=== PATIENT | female | born 2000 | race Caucasian/White ===

== ENCOUNTER 2019-05-03 10:29 | Emergency (ER) | payer OTHER, SELFPAY ==
--- NOTE | ~2019-05-03 | XR_ITS ---
XR hand RT min 3V 05/03/2019 11:51 INDICATION: Right hand pain PROCEDURE: 3 views right hand COMPARISON: 05/15/2010 FINDINGS: Fracture, dislocation or subluxation is not identified. The soft tissues appear within norm al limits. No foreign bodies are identified. IMPRESSION: 1: NO ACUTE BONE OR JOINT ABNORMALITY IDENTIFIED. Reviewed, dictated and finalized at location A.
[2019-05-03 10:34] VITALS: BP 127/79; PULSE 90; RESP 16; TEMP 36.8; O2SAT 100
--- NOTE | 2019-05-03 11:02 | ED.UPPEXIN ---
HPI - Extremity Injury (Upper) General Chief Complaint: Extremity Injury, Upper Stated Complaint: right pinky injury Time Seen by Provider: 05/03/19 10:36 Source: patient Mode of arrival: ambulatory Limitations: no limitations History of Present Illness HPI narrative: This is a 18 year old female that presents to the ER for right 5th finger injury last night. Reports she was cleaning out booths at work. Reports she dropped the cushion with wood frame on her right hand. Reports since she has had pain, especially in the 5th finger. Pain radiates into her hand and is worse with movement. Denies decreased ROM or numbness. Related Data Home Medications Medication Instructions Recorded Confirmed estradiol valerate-dienogest 3 1 tablet PO DAILY 12/29/18 mg/2 mg-2 mg/2 mg-3 mg/1 mg tablet ferrous sulfate 324 mg (65 mg 324 mg PO DAILY 12/29/18 iron) tablet,delayed release Allergies Allergy/AdvReac Type Severity Reaction Status Date / Time No Known Allergies Allergy Verified 05/03/19 10:37 Review of Systems Review of Systems: Narrative: CONSTITUTIONAL: Denies fever MUSCULOSKELETAL: Reports joint pain, and myalgia. NEUROLOGIC: Denies numbness All systems reviewed & are unremarkable except as noted in HPI and below PMFSH Family History Family History (System 01/03/19 @ 09:40 by María Álvarez) Father Hypertension Family history of lymphoma Family history of hypercholesterolemia Family history of heart disease in male family member before age 55, Onset Age: 37 Grandparent Hypertension Family history of cardiovascular disease Other Asthma Social History Social History (Updated 04/08/19 @ 11:26 by Norma Padilla) Smoking status: Never smoker Second hand tobacco smoke exposure: No Smoking end date: 02/23/15 Alcohol intake: never Substance use: never Substance use type: does not use Additional living arrangements comments: with boyfriend and mom Gender identity (if verbalized by the patient): Female Exam Narrative: Exam Narrative: GENERAL: Well-appearing, well-nourished, and in no acute distress. HEAD: Normocephalic, atraumatic. EYES: EOMI. EXTREMITIES: Normal range of motion. No edema or obvious deformity. Mild bruising to the right 5th finger distal phalanx. Normal radial pulses. Normal sensation SKIN: Warm, dry, no rash. NEURO: No focal deficits. Alert and oriented x3. PSYCH: Normal mood and affect Course Vital Signs Vital signs: Vital Signs Temperature 98.3 F 05/03/19 10:34 Pulse Rate 90 05/03/19 10:34 Respiratory Rate 16 05/03/19 10:34 Blood Pressure 127/79 05/03/19 10:34 Pulse Oximetry 100 05/03/19 10:34 Temperature 98.3 F 05/03/19 10:34 Pulse Rate 90 05/03/19 10:34 Respiratory Rate 16 05/03/19 10:34 Blood Pressure 127/79 05/03/19 10:34 Pulse Oximetry 100 05/03/19 10:34 MDM - Extremity Injury (Upper) MDM Narrative Medical decision making narrative: Patient presents to the ER for injury to right 5th finger injury yesterday. Right hand x-rays without acute changes. Patient was placed in a finger splint for protection and comfort. She was instructed to ice, elevate and take anti-inflammatories as needed for pain. She is to follow-up with primary care doctor. She is given warnings to return to the ER Imaging Data Radiologist's impression: ITS Impressions Hand X-Ray 05/03/19 11:54 IMPRESSION: 1: NO ACUTE BONE OR JOINT ABNORMALITY IDENTIFIED. Critical Care Time Critical Care Time Critical Care Time: No Discharge Plan Discharge Clinical Impression: Contusion of right little finger Qualifiers: Encounter type: initial encounter Damage to nail status: without damage Qualified Code(s): S60.051A - Contusion of right little finger without damage to nail, initial encounter Patient Disposition: Home, Self-Care Condition: Stable Instructions: Contusion in Adults (ED) Additional Instructi
[2019-05-03 13:01] VITALS: BP 112/78; PULSE 68; RESP 16; O2SAT 100
== END 2019-05-03 13:02 | disposition home or self-care (01) ==
PROVIDERS: Emergency Provider Emergency Medicine; PCP Family Medicine
DX: S60.051A Contusion of right little finger without damage to nail, initial encounter (principal); W20.8XXA Other cause of strike by thrown, projected or falling object, initial encounter
CPT/HCPCS: 29130; 73130; 99283

== ENCOUNTER 2019-08-21 13:00 | Emergency (ER) | payer OTHER, SELFPAY ==
--- NOTE | ~2019-08-21 | XR_ITS ---
EXAMINATION: XR ankle RT min 3V EXAM DATE: 08/21/2019 13:48 INDICATION: Initial encounter following injury, with pain of the right ankle. TECHNIQUE: Right ankle frontal, lateral and oblique projections obtained and reviewed. There is no p rior study for comparison. FINDINGS: The right ankle mortise appears intact. There are no acute fractures or dislocations iden tified. There is no subcutaneous gas. The soft tissue is unremarkable. There are no radiopaque fo reign bodies. IMPRESSION: 1. Right ankle exam without acute osseous findings. Reviewed, dictated and finalized at location A.
--- NOTE | ~2019-08-21 | XR_ITS ---
EXAMINATION: XR knee RT 3V EXAM DATE: 08/21/2019 13:48 INDICATION: Initial encounter following injury, with pain of the right knee. TECHNIQUE: Three projections of the right knee. There is no prior study for comparison. FINDINGS: No evidence osteochondral defect or joint body in the right knee joint. No joint effusio n. There are no acute fractures or dislocations identified. There is no subcutaneous gas. The soft tissue is unremarkable. There are no radiopaque foreign bodies. IMPRESSION: 1. XR knee RT 3V exam without acute osseous findings. Reviewed, dictated and finalized at location A.
[2019-08-21 13:03] VITALS: BP 136/66; PULSE 78; RESP 18; TEMP 36.9; O2SAT 100
--- NOTE | 2019-08-21 13:17 | ED.GENADULT ---
HPI - General Adult General Chief complaint: Fall <Gilmar Reed PA-C Last Filed: 08/21/19 14:14> Stated complaint: fall at work <CB Garces Last Filed: 08/21/19 14:14> Time Seen by Provider: 08/21/19 13:08 <CB Garces Last Filed: 08/21/19 14:14> Source: patient <CB Garces Last Filed: 08/21/19 14:14> Mode of arrival: ambulatory <Gilmar Reed PA-C Last Filed: 08/21/19 14:14> Limitations: no limitations <Gilmar Reed PA-C Last Filed: 08/21/19 14:14> History of Present Illness HPI narrative: Patient is a 19-year-old female who presents to emergency department for evaluation of right knee and ankle pain that began yesterday after miss stepping twisting the ankle and injuring it patient notes bruising and swelling to the knee joint denies other injuries or complaints presents per private vehicle in no distress. Has not taken anything for symptom <Gilmar Reed PA-C Last Filed: 08/21/19 14:14> Related Data Home medications: Home Medications Medication Instructions Recorded Confirmed No Home Medications 08/21/19 08/21/19 <Gilmar Reed PA-C Last Filed: 08/21/19 14:14> Allergies/adverse reactions: Allergies Allergy/AdvReac Type Severity Reaction Status Date / Time No Known Allergies Allergy Verified 08/21/19 13:08 <Gilmar Reed PA-C Last Filed: 08/21/19 14:14> Review of Systems Review of Systems: All systems reviewed & are unremarkable except as noted in HPI and below <Gilmar Reed PA-C Last Filed: 08/21/19 14:14> [facility] Family History Family History: Family History (System 01/03/19 @ 09:40 by María Álvarez) Father Hypertension Family history of lymphoma Family history of hypercholesterolemia Family history of heart disease in male family member before age 55, Onset Age: 37 Grandparent Hypertension Family history of cardiovascular disease Other Asthma <CB Garces Last Filed: 08/21/19 14:14> Social History Social History: Social History Smoking status: Never smoker Second hand tobacco smoke exposure: No Smoking end date: 02/23/15 Alcohol intake: never Substance use: never Substance use type: does not use Additional living arrangements comments: with boyfriend and mom Gender identity (if verbalized by the patient): Female <Gilmar Reed PA-C - Last Filed: 08/21/19 14:14> Exam Narrative: Exam Narrative: GENERAL: Well-appearing, well-nourished, and in no acute distress. HEAD: Normocephalic, atraumatic. EYES: PERRLA and EOMI. ENT: Nares clear, no rhinorrhea or epistaxis. Mucous membranes moist. EXTREMITIES: Normal range of motion. No edema. Bruising and tenderness of the anterior right knee and lateral aspect of the right ankle no deformity of the ankle noted SKIN: Warm, dry, no rash. NEURO: No focal deficits. Alert and oriented x3. Neurovascularly intact. Cranial nerves II through XII grossly intact. PSYCH: Normal mood and affect. <Gilmar Reed PA-C - Last Filed: 08/21/19 14:14> Course Vital Signs Vital signs: Vital Signs Temperature 36.9 C 08/21/19 13:03 Pulse Rate 78 08/21/19 13:03 Respiratory Rate 18 08/21/19 13:03 Blood Pressure 136/66 08/21/19 13:03 Pulse Oximetry 100 08/21/19 13:03 Temperature 36.9 C 08/21/19 13:03 Pulse Rate 62 08/21/19 14:41 Respiratory Rate 16 08/21/19 14:41 Blood Pressure 108/66 08/21/19 14:41 Pulse Oximetry 99 08/21/19 14:41 <Gilmar Reed PA-C - Last Filed: 08/21/19 14:14> Vital Signs Temperature 36.9 C 08/21/19 13:03 Pulse Rate 78 08/21/19 13:03 Respiratory Rate 18 08/21/19 13:03 Blood Pressure 136/66 08/21/19 13:03 Pulse Oximetry 100 08/21/19 13:03 Temperature 36.9 C 08/21/19 13:03 Pulse Rate 62 08/21/19 14:41
[2019-08-21 14:41] VITALS: BP 108/66; PULSE 62; RESP 16; O2SAT 99
== END 2019-08-21 14:43 | disposition home or self-care (01) ==
PROVIDERS: Emergency Provider Emergency Medicine; PCP Family Medicine
DX: S80.01XA Contusion of right knee, initial encounter (principal); S93.401A Sprain of unspecified ligament of right ankle, initial encounter; X50.9XXA Other and unspecified overexertion or strenuous movements or postures, initial encounter
CPT/HCPCS: 73562; 73610; 99284

== ENCOUNTER 2020-01-20 06:53 | Outpatient (NON) | payer OTHER, SELFPAY ==
[2020-01-21 13:43] LABS: SARS-CoV-2 RNA PCR Positive
== END 2020-01-20 06:54 ==
LOC: ANHCOVIDDT 07:20
PROVIDERS: PCP Family Medicine; Visit Provider Physician Assistant
DX: U07.1 COVID-19 (principal)
CPT/HCPCS: 87635; C9803; U0003

== ENCOUNTER 2020-07-06 08:09 | Outpatient (CLI) | payer OTHER, SELFPAY ==
[2020-07-06 08:19] LABS: Basophils Absolute Auto 0.1 K/mm3 (0.0-0.1); Basophils Percent Auto 0.7 % (0.2-1.2); Eosinophils Absolute Auto 0.2 K/mm3 (0-0.3); Eosinophils Percent Auto 2.9 % (0-4.4); Hematocrit 42.4 % (37.0-47.0); Hemoglobin 14.1 g/dL (12.0-15.0); Immature Granulocyte Absolute 0.02 K/mm3 (0.00-0.031); Immature Granulocyte Percent A 0.3 % (0-0.5); Lymphocytes Absolute Auto 2.05 K/mm3 (0.9-3.2); Lymphocytes Percent Auto 29.7 % (18.3-44.2); Mean Corpuscular HGB Conc 33.3 g/dl (32-36); Mean Corpuscular Hemoglobin 30.2 pg (26-34); Mean Corpuscular Volume 90.8 fl (80-100); Monocytes Absolute Auto 0.5 K/mm3 (0.1-0.6); Monocytes Percent Auto 7.2 % (2.6-8.5); Neutrophils Absolute Auto 4.1 K/mm3 (1.3-6.7); Neutrophils Percent Auto 59.2 % (45.5-73.1); Platelet Count Result 282 k/mm3 (150-375); Red Blood Count 4.67 M/mm3 (4.2-5.4); Red Cell Distribution Width 12.3 % (11.5-14.5); White Blood Count 6.9 K/mm3 (4.5-10.0)
[2020-07-06 08:28] LABS: Alanine Aminotransferase 14 U/L (4-35); Albumin Level 4.5 g/dL (3.5-5.1); Alkaline Phosphatase 44 U/L (38-126); Anion Gap 4 mmol/L (8-16); Aspartate Amino Transferase 27 U/L (14-36); Bilirubin,Total 0.6 mg/dL (0.2-1.3); Blood Urea Nitrogen 10 mg/dL (7-17); Calcium 9.8 mg/dL (8.4-10.2); Carbon Dioxide 30 mmol/L (22-30); Chloride 103 mmol/L (98-107); Estimated Glomerular Filt Rate > 60; Glucose 98 mg/dL (65-105); Potassium 3.7 mmol/L (3.4-5.0); Sodium 137 mmol/L (137-145)
== END 2020-07-06 08:10 | disposition home or self-care (01) ==
LOC: ANHLAB 08:09
PROVIDERS: PCP Family Medicine; Visit Provider Family Medicine
DX: D64.9 Anemia, unspecified (principal); I10 Essential (primary) hypertension; E03.9 Hypothyroidism, unspecified
CPT/HCPCS: 36415; 80053; 82607; 84443; 85025

== ENCOUNTER 2021-01-15 17:23 | Emergency (ER) | payer OTHER, SELFPAY ==
--- NOTE | ~2021-01-15 | XR_ITS ---
XR knee LT min 4V 01/15/2021 17:52 INDICATION: Left knee pain PROCEDURE: 4 views left knee COMPARISON: No prior studies for comparison. FINDINGS: Fracture, dislocation or subluxation is not identified. No significant joint effusion. The soft tissues appear within normal limits. No foreign bodies are identified. IMPRESSION: 1: NO ACUTE BONE OR JOINT ABNORMALITY IDENTIFIED. Reviewed, dictated and finalized at location A. ER/WAITRESS HEAD
[2021-01-15 17:30] VITALS: BP 127/69; PULSE 102; RESP 17; TEMP 36.4; O2SAT 100
--- NOTE | 2021-01-15 20:42 | ED.GENADULT ---
HPI - General Adult General Chief complaint: Extremity Injury, Lower Stated complaint: Left Knee Injury Time Seen by Provider: 01/15/21 17:55 Source: patient Mode of arrival: ambulatory Limitations: no limitations History of Present Illness HPI narrative: Patient presents with chief complaint of pain to the left knee that began on Thursday after playing soccer. Patient reports that her left leg went medially right lower leg went out laterally. Patient reports that she also noticed some bruises on her shins but denies pain to those areas. Patient reports she has some discomfort with weightbearing. She reports she has decreased range of motion due to discomfort. Patient denies any other injuries or concerns. Related Data Allergies Allergy/AdvReac Type Severity Reaction Status Date / Time No Known Allergies Allergy Verified 12/17/20 07:48 Review of Systems Review of Systems: CONSTITUTIONAL: Denies fever, chills, or sweats. EYES: Denies visual changes, redness, or discharge. ENT: Denies rhinorrhea, congestion, sore throat, or otalgia. CARDIOVASCULAR: Denies chest pain, palpitations, or edema. RESPIRATORY: Denies cough or dyspnea. GASTROINTESTINAL: Denies abdominal pain, nausea, vomiting, or diarrhea. GENITOURINARY: Denies dysuria or hematuria. SKIN: Denies rash or itching. MUSCULOSKELETAL: Reports left knee pain denies back pain, joint pain, or myalgia. NEUROLOGIC: Denies headache, numbness, dizziness, or weakness. PSYCHIATRIC: Denies anxiety or depression. [facility] Family History Family History Father Hypertension Family history of lymphoma Family history of hypercholesterolemia Family history of heart disease in male family member before age 55, Onset Age: 37 Grandparent Hypertension Family history of cardiovascular disease Other Asthma Social History Social History (Updated 12/17/20 @ 07:49 by Norma Padilla) Social History: Single Smoking status: Smoker, status unknown (Pt vapes) Tobacco type: cigarettes and e-cigarettes/vaping Second hand tobacco smoke exposure: No Smoking end date: 02/23/15 Additional smoking assessment comments: Pt still vapes Alcohol intake: current Alcohol use details: Occasionally Substance use: current Substance use type: marijuana Other substance usage details: Pt smokes on occasion, when she can't sleep. Additional living arrangements comments: with boyfriend and mom. Additional occupation/education comments: Pt works 2 jobs. Gender identity (if verbalized by the patient): Female Sexual Orientation (if Verbalized by the Patient): Straight or Heterosexual Exam Narrative: GENERAL: Well-appearing, well-nourished, and in no acute distress. HEAD: Normocephalic, atraumatic. EYES: PERRLA and EOMI. CHEST: No respiratory distress. No tachypnea EXTREMITIES: Bruising diffusely to bilateral lower legs. There is a bruise to the anterior aspect of the left knee. Patient has limitations to extending and flexing due to discomfort. Unable to get full anterior and posterior drawer test and Tatiana's test due to discomfort from patient limiting exam. Spasming to posterior quad. SKIN: Warm, dry, no rash. NEURO: No focal deficits. Alert and oriented x3. PSYCH: Normal mood and affect. Course Vital Signs Vital signs: Vital Signs Temperature 97.6 F 01/15/21 17:30 Pulse Rate 102 H 01/15/21 17:30 Respiratory Rate 17 01/15/21 17:30 Blood Pressure 127/69 01/15/21 17:30 Pulse Oximetry 100 01/15/21 17:30 Temperature 97.6 F 01/15/21 17:30 Pulse Rate 102 H 01/15/21 17:30 Respiratory Rate 17 01/15/21 17:30 Blood Pressure 127/69 01/15/21 17:30 Pulse Oximetry 100 01/15/21 17:30 Medical Decision Making MDM Narrative Medical decision making narrative: Patient placed in Larry wrap for support. Patient reports he already has crutches at home to avoid weightbearing until he ca
== END 2021-01-15 19:10 | disposition home or self-care (01) ==
PROVIDERS: Emergency Provider Emergency Medicine; PCP Family Medicine
DX: S86.912A Strain of unspecified muscle(s) and tendon(s) at lower leg level, left leg, initial encounter (principal); X50.0XXA Overexertion from strenuous movement or load, initial encounter
CPT/HCPCS: 73564; 99283

== ENCOUNTER 2021-02-03 07:13 | Outpatient (CLI) | payer OTHER, SELFPAY ==
--- NOTE | ~2021-02-03 | MR_ITS ---
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 Sequences included coronal PD-weighted FSE, coronal PD-weighted FS FSE, sagittal T2-weighted FSE , sagittal PD-weighted FS FSE, axial T1-weighted FSE and axial PD weighted fat saturated FSE. COMPARISON: Radiographs dated 01/15/2021 FINDINGS: Medial compartment: Medial meniscus is normal. Articular cartilage is normal. Lateral compartment: Lateral meniscus is normal. Articular cartilage is normal. Patellofemoral compartment: Articular cartilage is normal. Ligaments and tendons: Anterior and posterior cruciate ligaments are normal. The medial collateral ligament and fibular rafi ateral ligament complex are normal. The extensor mechanism is normal. The visualized medial and later al hamstring tendons as well as the iliotibial band are normal. Fluid: Physiologic amount of fluid in the joint space. No loose osteochondral bodies identified. Osseous/other: There is prominent marrow signal at the proximal head of the fibula surrounding low signal intensity curvilinear fracture line underlying the articular surface at the proximal tibiofibular articulation. The orientation of the fracture line would favor an impaction fracture of the abdomen and avulsion f racture. Further supporting impacted etiology is the coarse benign marrow edema without evident fract ure line in the posterolateral aspect of the proximal tibia juxtaposed across the proximal tibiofibul ar articulation. Bone marrow signal is otherwise normal. No other fractures or pathologic marrow repl acing process. IMPRESSION: 1. Likely impaction injury at the proximal tibiofibular articulation with bone contusion at the tibia l side of the joint space and nondisplaced subarticular impaction fracture line at the head of the fi bula. 2. Normal menisci, cartilage and stabilizing ligaments of the knee. Reviewed, dictated and finalized at location A. LOPE MAKER IMPRESSION: 1. Likely impaction injury at the proximal tibiofibular articulation with bone contusion at the tibial side of the joint space and nondisplaced subarticular i mpaction fracture line at the head of the fibula. 2. Normal menisci, cartilage and stabilizing ligaments of the knee.
== END 2021-02-03 07:14 | disposition home or self-care (01) ==
PROVIDERS: PCP Family Medicine; Visit Provider Family Medicine
DX: S80.12XS Contusion of left lower leg, sequela (principal); M23.8X2 Other internal derangements of left knee
CPT/HCPCS: 73721

== ENCOUNTER 2021-04-22 20:33 | Emergency (ER) | payer OTHER, BC, SELFPAY ==
--- NOTE | ~2021-04-22 | CT_ITS ---
EXAMINATION: CT brain wo con DATE: 04/22/2021 23:03 INDICATION: Injury playing soccer yesterday. Patient's head was butted. TECHNIQUE: Computed tomography (CT) of the head was performed without intravenous contrast. The mA wa s adjusted according to patient size. Iterative reconstruction technique was employed. Exam dose: 52 9.67 mGy-cm total exam DLP. COMPARISON: None FINDINGS: No intracranial mass lesion or hemorrhage or cerebrovascular accident. No midline shift or mass effect. Normal ventricular size. Normal cerda-white matter differentiation. No subdural or epidur al hematoma. The orbital contents are unremarkable. No fracture or bone destruction of the cranial vault. Included paranasal sinuses and mastoid air cells are normally developed and aerated. And IMPRESSION: Negative Reviewed, dictated and finalized at Location A. Reviewed, dictated and finalized at location A. NDER FILLER IMPRESSION: Negative
--- NOTE | ~2021-04-22 | CT_ITS ---
EXAMINATION: CT facial bones wo con DATE: 04/22/2021 23:03 INDICATION: Injury playing soccer yesterday. Patient was head butted. Head and facial injuries. TECHNIQUE: Computed tomography (CT) of the facial bones and maxillofacial region was performed withou t intravenous contrast. Automated exposure control and iterative reconstruction technique were employ ed. Exam dose: 303.15 mGy-cm total exam DLP. COMPARISON: None. FINDINGS: The frontozygomatic sutures, zygomatic arches, orbital rims and thacker, nasal bones, anterio r maxillary spine and the remaining facial bones are intact. Normal development and aeration of the p aranasal sinuses. IMPRESSION: No evidence of facial fracture Reviewed, dictated and finalized at Location A. Reviewed, dictated and finalized at location A. [facility]
[2021-04-22 20:37] VITALS: BP 119/89; PULSE 94; RESP 16; TEMP 36; O2SAT 98
[2021-04-22] MEDS: ONDANSETRON INJ 4 MG/2 ML VIAL IV PUSH (22:30)
[2021-04-22] MEDS: KETOROLAC 30 MG/ML VIAL (*BKC) IV PUSH (22:30)
[2021-04-22] MEDS: SODIUM CHLORIDE 0.9% IV 1,000 ML 999 ML IV CONT (22:32)
[2021-04-22 23:45] VITALS: BP 112/68; PULSE 85; RESP 16; TEMP 36.8; O2SAT 100
--- NOTE | 2021-04-23 02:18 | ED.HA ---
HPI - Headache General Chief Complaint: Headache <Marie Joy APRN - Last Filed: 04/23/21 03:06> Stated Complaint: nausea, dizziness <Marie Joy APRN - Last Filed: 04/23/21 03:06> Time Seen by Provider: 04/22/21 21:40 <Marie Joy APRN - Last Filed: 04/23/21 03:06> Source: patient <Marielarisa Joy SOIL CONSERVATION AIDE - Last Filed: 04/23/21 03:06> Mode of arrival: ambulatory <Marie Joy SOIL CONSERVATION AIDE - Last Filed: 04/23/21 03:06> Limitations: no limitations <Marie Joy APRN - Last Filed: 04/23/21 03:06> History of Present Illness HPI Narrative: 20-year-old female presents today with complaints of nausea, headache, and sensitivity to light with periodic dizziness after having hit her head while playing soccer yesterday. Patient states another person hit her left eye with their head. No bruising noted but some swelling noted to the left cheek. Patient denies any history of concussions or brain injuries in the past. <Marie Joy SOIL CONSERVATION AIDE - Last Filed: 04/23/21 03:06> Related Data Allergies/Adverse Reactions: Allergies Allergy/AdvReac Type Severity Reaction Status Date / Time No Known Allergies Allergy Verified 04/22/21 20:37 <Marie Joy SOIL CONSERVATION AIDE - Last Filed: 04/23/21 03:06> Review of Systems Review of Systems: CONSTITUTIONAL: Denies fever, chills, or sweats. EYES: Denies visual changes, redness, or discharge. ENT: Denies rhinorrhea, congestion, sore throat, or otalgia. CARDIOVASCULAR: Denies chest pain, palpitations, or edema. RESPIRATORY: Denies cough or dyspnea. GASTROINTESTINAL: Positive for nausea. Denies abdominal pain, vomiting, or diarrhea. GENITOURINARY: Denies dysuria or hematuria. SKIN: Denies rash or itching. MUSCULOSKELETAL: Denies back pain, joint pain, or myalgia. NEUROLOGIC: Positive for headache and intermittent dizziness. Denies numbness or weakness. PSYCHIATRIC: Denies anxiety or depression. <Marie Joy APRN - Last Filed: 04/23/21 03:06> [facility] Family History Family History: Family History Father Hypertension Family history of lymphoma Family history of hypercholesterolemia Family history of heart disease in male family member before age 55, Onset Age: 37 Grandparent Hypertension Family history of cardiovascular disease Other Asthma <Marie Joy APRN - Last Filed: 04/23/21 03:06> Social History Social History: Social History Social History: Single Smoking status: Never smoker Tobacco type: cigarettes and e-cigarettes/vaping Second hand tobacco smoke exposure: No Smoking end date: 02/23/15 Additional smoking assessment comments: Pt still vapes Alcohol intake: current Alcohol use details: Occasionally Substance use: current Substance use type: marijuana Other substance usage details: Pt smokes on occasion, when she can't sleep. Additional living arrangements comments: with boyfriend and mom. Gender identity (if verbalized by the patient): Female Sexual Orientation (if Verbalized by the Patient): Straight or Heterosexual <Marie Joy APRN - Last Filed: 04/23/21 03:06> Exam Narrative: GENERAL: Well-appearing, well-nourished, and in no acute distress. HEAD: Normocephalic, atraumatic. EYES: PERRLA and EOMI. ENT: Nares clear, no rhinorrhea or epistaxis. Mucous membranes moist. Oropharynx without tonsillar hypertrophy exudate or other lesions. Bilateral TMs pearly cerda nonbulging NECK: Supple. No adenopathy or masses. No carotid bruits or JVD CHEST: Clear to auscultation. No respiratory distress. No wheezes rales or rhonchi HEART: Regular rate and rhythm. No murmur heard. Normal peripheral pulses. ABDOMEN: Soft, nontender, nondistended, normal active bowel sounds. EXTREMITIES: Normal range of motion. No edema. SKIN: Warm, dry, no rash. NEURO: No focal deficits. Alert and o
== END 2021-04-22 23:45 | disposition home or self-care (01) ==
PROVIDERS: Emergency Provider Nurse Practitioner Family; PCP Family Medicine
DX: S06.0X9A Concussion with loss of consciousness of unspecified duration, initial encounter (principal); F17.290 Nicotine dependence, other tobacco product, uncomplicated; W51.XXXA Accidental striking against or bumped into by another person, initial encounter; Y93.66 Activity, soccer
CPT/HCPCS: 70450; 70486; 81025; 96361; 96374; 96375; 99284; J1885; J2405; J7030

== ENCOUNTER 2022-01-20 15:06 | Emergency (ER) | payer BC, SELFPAY ==
[2022-01-20 15:36] VITALS: BP 124/80; PULSE 70; RESP 16; TEMP 36.7; O2SAT 100
--- NOTE | 2022-01-20 15:57 | ED.URI ---
HPI - URI/Sore Throat General Chief Complaint: Upper Respiratory Infection Stated Complaint: headache,congestion,cough Time Seen by Provider: 01/20/22 15:40 Source: patient Mode of arrival: ambulatory Limitations: no limitations History of Present Illness HPI Narrative: Francine is a 21-year-old female patient presenting to the clinic today with complaints of headache, cough, congestion, and body aches x1 day. She reports her symptoms began yesterday. she denies any known fever or chills. MD elicited complaint: sore throat and nasal congestion Related Data Allergies Allergy/AdvReac Type Severity Reaction Status Date / Time No Known Allergies Allergy Verified 01/20/22 15:23 Review of Systems Review of Systems: Pertinent positives per HPI. Patient denies any fever, chills, rash, visual changes, dizziness, shortness of breath, chest pain, palpitations, nausea, vomiting, diarrhea, constipation, abdominal pain, or any urinary issues. PMFSH Past Medical History Medical History Contusion of leg, right, multiple sites High ankle sprain Family History Family History Father Hypertension Family history of lymphoma Family history of hypercholesterolemia Family history of heart disease in male family member before age 55, Onset Age: 37 Grandparent Hypertension Family history of cardiovascular disease Other Asthma Social History Social History Social History: Single Smoking status: Smoker, status unknown (Pt vapes) Tobacco type: cigarettes and e-cigarettes/vaping Second hand tobacco smoke exposure: No Smoking end date: 02/23/15 Additional smoking assessment comments: Pt still vapes Alcohol intake: current Alcohol use details: Occasionally Substance use: current Substance use type: marijuana Other substance usage details: Pt smokes on occasion, when she can't sleep. Additional living arrangements comments: with boyfriend and mom. Gender identity (if verbalized by the patient): Female Sexual Orientation (if Verbalized by the Patient): Straight or Heterosexual Comments At the time of my signature, I reviewed and agree with the nursing past medical, surgical, social, and family history. There is no relevant family history pertinent to the patient complaint. Exam Narrative: General: Well-developed, well nourished, in no apparent distress Head: Normocephalic, atraumatic Eyes: Pupils equally round and reactive to light bilaterally, EOM intact, sclera and conjunctive clear, no discharge, lids normal Ears: TMs intact and clear, ear canals clear, no drainage, grossly hearing normal. Nose: Nares patent, clear nasal discharge, no inflammation, no sinus tenderness. Mouth: Oral pharynx without lesions or masses, good dentition, MMM. postnasal drip Neck: Supple, trachea midline, no enlargement of anterior or posterior cervical nodes, no thyroid masses or goiter palpable. Cardio: Regular rate and rhythm, s1 and s2 normal, no murmur appreciated. Resp: Clear to auscultation bilaterally, no rhonchi, rales, wheezing or rubs Course Course Emergency Course: Portions of this record may have been created with voice recognition software. Level of Care: Express Care Visit Vital Signs Vital signs: Vital Signs Temperature 36.7 C 01/20/22 15:36 Pulse Rate 70 01/20/22 15:36 Respiratory Rate 16 01/20/22 15:36 Blood Pressure 124/80 01/20/22 15:36 Pulse Oximetry 100 01/20/22 15:36 Oxygen Delivery Room Air 01/20/22 15:36 Temperature 36.7 C 01/20/22 15:36 Pulse Rate 70 01/20/22 15:36 Respiratory Rate 16 01/20/22 15:36 Blood Pressure 124/80 01/20/22 15:36 Pulse Oximetry 100 01/20/22 15:36 Oxygen Delivery Room Air 01/20/22 15:36 Vital signs reviewed MDM - URI/Sore Throat MDM Na
== END 2022-01-20 16:05 | disposition home or self-care (01) ==
PROVIDERS: Emergency Provider Nurse Practitioner Family
DX: J06.9 Acute upper respiratory infection, unspecified (principal); F17.209 Nicotine dependence, unspecified, with unspecified nicotine-induced disorders
CPT/HCPCS: 87804; 99213; G0463

== ENCOUNTER 2022-11-19 15:57 | Emergency (ER) | payer BC, SELFPAY ==
[2022-11-19 16:09] VITALS: BP 132/88; PULSE 68; RESP 18; TEMP 37.1; O2SAT 100
--- NOTE | 2022-11-19 16:11 | ED.URI ---
HPI - URI/Sore Throat General Chief Complaint: Upper Respiratory Infection Stated Complaint: Sore Throat,Headache,Cough,Nausea Time Seen by Provider: 11/19/22 16:02 Source: patient and RN notes reviewed Mode of arrival: ambulatory Limitations: no limitations History of Present Illness HPI Narrative: 22-year-old female presented for complaint of sore throat, cough, nasal drainage, nausea, diarrhea; onset 2 days. Reports subjective fever. Endorses drinking after someone who tested positive for strep today. Alternating Tylenol and ibuprofen for symptoms. Endorses painful swallow. Denies difficulty maintaining secretions. MD elicited complaint: cough Related Data Home Medications Medication Instructions Recorded Confirmed etonogestrel 0.12 mg-ethinyl 1 vag ring vaginal MONTHLY 11/19/22 11/19/22 estradiol 0.015 mg/24 hr vaginal ring ([facility]) Allergies Allergy/AdvReac Type Severity Reaction Status Date / Time No Known Allergies Allergy Verified 11/19/22 16:02 Review of Systems Review of Systems: CONSTITUTIONAL: Endorses malaise, chills, sweats, fever EYES: Denies visual changes, redness, or discharge ENT: Reports rhinorrhea, congestion, sore throat denies sinus pain, otalgia, CARDIOVASCULAR: Denies chest pain, palpitations, edema RESPIRATORY: Reports cough, post nasal drainage. Denies dyspnea GASTROINTESTINAL: Denies abdominal pain, nausea, vomiting, diarrhea SKIN: Denies rash or itching MUSCULOSKELETAL: Endorses myalgia NEUROLOGIC: reports headache PMFSH Past Medical History Medical History Contusion of leg, right, multiple sites High ankle sprain Family History Family History Father Hypertension Family history of lymphoma Family history of hypercholesterolemia Family history of heart disease in male family member before age 55, Onset Age: 37 Grandparent Hypertension Family history of cardiovascular disease Other Asthma Social History Social History Social History: Single Smoking status: Smoker, status unknown (Pt vapes) Tobacco type: cigarettes and e-cigarettes/vaping Second hand tobacco smoke exposure: No Smoking end date: 02/23/15 Additional smoking assessment comments: Pt still vapes Alcohol intake: current Alcohol use details: Occasionally Substance use: current Substance use type: marijuana Other substance usage details: Pt smokes on occasion, when she can't sleep. Living arrangements: with family Additional living arrangements comments: with boyfriend and mom. Occupation/Education: occupation Gender identity (if verbalized by the patient): Female Sexual Orientation (if Verbalized by the Patient): Straight or Heterosexual Exam Narrative: GENERAL: mildly Ill-appearing, nontoxic no acute distress. EYES: conjunctivae clear ENT: Mucous membranes moist. TM pearly cerda with dull light reflex bilaterally; no tragal tenderness. Oropharynx erythematous without lesions or exudate, tonsils 1+ no drooling, no hoarseness, no trismus, uvula midline. No tripod positioning, muffled voice, soft palate or pharyngeal wall bulging NECK: Supple. No lymphadenopathy CHEST: Clear to auscultation, breath sounds equal. No wheezing, rhonchi, rales, or stridor. No respiratory distress, speaks in full sentences. HEART: Regular rate and rhythm. No murmur heard. SKIN: Warm, dry, no rash. NEURO: Alert and oriented x3. PSYCH: Normal mood and affect Course Course Emergency Course: Patient is aware of diagnosis, understands and agrees to treatment plan. Anticipatory guidance given. Patient agrees to follow-up as directed and is aware of reasons to seek care at the emergency department. Portions of this record may have been created with voice recognition software Level of Care: Express Care Visit Vit
== END 2022-11-19 16:40 | disposition home or self-care (01) ==
PROVIDERS: Emergency Provider Nurse Practitioner Family; PCP Nurse Practitioner Family
DX: J06.9 Acute upper respiratory infection, unspecified (principal); F17.210 Nicotine dependence, cigarettes, uncomplicated; Z20.822 Contact with and (suspected) exposure to COVID-19
CPT/HCPCS: 87081; 87426; 87880; 99213; C9803; G0463

== ENCOUNTER 2022-12-12 14:13 | Emergency (ER) | payer BC, SELFPAY ==
[2022-12-12 14:26] VITALS: BP 123/82; PULSE 70; RESP 20; TEMP 36.8; O2SAT 100
== END 2022-12-12 17:42 | disposition left against medical advice (07) ==
PROVIDERS: PCP Nurse Practitioner Family
DX: M54.2 Cervicalgia (principal)
CPT/HCPCS: 99199

== ENCOUNTER 2023-03-31 00:28 | Day surgery (SDC) | payer BC, SELFPAY ==
[2023-03-18 15:05] VITALS: BMI 21.2
--- NOTE | 2023-03-18 15:17 | PCDIET ---
Report to the Outpatient Waiting Room, entrance under the green pavilion located off [facility], at time __0815 on date __03/31/23 . Planned Procedure Time: _1015 . Time changes happen often and if your time is changed the preop area will call you the afternoon before. - You and your visitor will be asked to self-screen and do not enter if you have any COVID symptoms. - A mask is optional within the hospital at this time. Patients may have clear liquids (water, carbonated beverages, clear teas, apple juice) until 3 hours prior to surgery with a maximum of 20 ounces. - No food from midnight until time of surgery - Infants may have breast milk until 4 hours before surgery, infant formula 6 hours prior to surgery. - Children will be allowed to drink immediately following surgery. If applicable, please bring a bottle or sippy cup to assist with drinking. Juice, water, soda, and popsicles are readily available. For infants on formula, please bring formula the day of surgery. Pacifiers are allowed. Take the following medications with a SIP of water the morning of surgery: __Sertaline and buspirone DO NOT STOP ANY OF YOUR OTHER PRESCRIPTION MEDICATIONS PRIOR TO SURGERY ?EXCEPT THE FOLLOWING Medications to discontinue per physician __N/A Date to take last dose__N/A Please no make-up, nail belarusian, hairspray, perfume, deodorant, or body powder the day of surgery. No jewelry (including any body piercings) or valuables the day of surgery, leave them at home. Please take a shower or bath the night before, or the morning of, surgery with an antibacterial soap. Wear comfortable, loose fitting clothing. Children are encouraged to wear pajamas. - Jewelry must be removed prior to entering the operating room. Rings and piercings that are not removed may be cut off. - The hospital will not accept responsibility for valuables. - Please leave all valuables, including medications, at home the day of surgery. If you are going home after surgery, a licensed double bottom driver must drive you home. - NO public transportation without another adult if you receive anesthesia. - We recommend that an adult stay with you for 24 hours following discharge. - We also recommend that you do not drive, make important decision, drink alcoholic beverages, or take any drugs that were not prescribed by your health care provider for at least 24 hours after your discharge time. For Pediatric surgeries, we recommend two adults accompany the child home. Follow any additional instructions given to you from your surgeon. If you or anyone in your household have experienced Covid symptoms in the past week, please notify your surgeon or the nurse liaison at the phone number below for possible testing. Telephone instructions given to _Francine Dumont and asked if any additional questions and then verbalized understanding. Patient advised to call surgeon office or pre surgery nurse liaison [phone] if any additional questions.
--- NOTE | 2023-03-29 16:21 | PM.IMHP ---
H&P: HPI History of Present Illness Date/Time: 03/29/23 16:21 Chief Complaint: recurrent tonsillitis Narrative: planned procedure Review of Systems Review of Systems: All systems reviewed & are unremarkable except as noted in HPI and below PMFSH Past Medical History Medical History (Updated 03/15/23 @ 15:31 by Mendoza Max MD) Contusion of leg, right, multiple sites High ankle sprain Surgical History Surgical History (Updated 01/29/23 @ 09:35 by Makayla Zhao CMA) History of placement of ear tubes [facility] teeth extracted Family History Family History (Updated 01/29/23 @ 09:37 by Makayla Zhao CMA) Father Hypertension Family history of lymphoma Family history of hypercholesterolemia Family history of heart disease in male family member before age 55, Onset Age: 37 Grandparent Hypertension Family history of cardiovascular disease Cerebrovascular accident Diabetes mellitus Alcoholism Grandparent Alcoholism Asthma Hypertension Heart disease Cerebrovascular accident Social History Social History (Updated 01/29/23 @ 09:33 by Makayla Zhao CMA) Social History: Single Smoking status: Current every day smoker Tobacco type: e-cigarettes/vaping Second hand tobacco smoke exposure: No Smoking end date: 01/22/23 Additional smoking assessment comments: 1 pod every 4 days Alcohol intake: current Alcohol use details: Occasionally Substance use: current Substance use type: marijuana Other substance usage details: Pt smokes on occasion, when she can't sleep. Lack of Transportation: No Lack of Food: Never True Current Housing: I Have Housing Concerned About Future Housing: No Difficulty Paying Gas/Electric Bills: No Difficulty Paying for Meds: No Currently Unemployed: No Education: Associate Degree Difficulty w/ Childcare or Family Care: No Living arrangements: with family Additional living arrangements comments: with boyfriend and mom. Occupation/Education: occupation Gender identity (if verbalized by the patient): Female Sexual Orientation (if Verbalized by the Patient): Straight or Heterosexual Spiritual care concerns: No Meds Home Medications and Allergies Home Medications Medication Instructions Recorded Confirmed Type etonogestrel 0.12 mg-ethinyl 1 vag ring vaginal MONTHLY 11/19/22 03/18/23 History estradiol 0.015 mg/24 hr vaginal ring ([facility]) buspirone 10 mg tablet 10 mg PO BID PRN Anxiety 01/29/23 03/18/23 History fluticasone propionate 50 1 - 2 spray intranasal BID #16 mL 01/29/23 03/18/23 Rx mcg/actuation nasal spray,suspension (Flonase Allergy Relief) sertraline 50 mg tablet 100 mg PO DAILY 01/29/23 03/18/23 History Allergies Allergy/AdvReac Type Severity Reaction Status Date / Time cat dander AdvReac Congested Verified 03/18/23 14:46 Exam Narrative: large tonsils right side with cyst Assessment and Plan Assessment and plan (1) Tonsil stone: Code(s): J35.8 - Other chronic diseases of tonsils and adenoids Status: Acute Assessment and Plan: plan will also be OR for tonsillectomy risks discussed including bleeding infection damage to surrounding structures need for further procedures change in swallow change in taste which could be permanent need for time-out for time off school and risks of narcotic use.? Damage to any structure of the clavicle by myself.? Damage to any structure during the injection and maintenance of anesthesia.? Multiple medical issues medical management discussion of major surgery. (2) Recurrent tonsillitis: Code(s): J03.91 - Acute recurrent tonsillitis, unspecified Status: Acute
[2023-03-31] VITALS (9 sets, daily range): BP systolic 108–127; BP diastolic 62–87; PULSE 59–83; RESP 12–25; TEMP 36.5; O2SAT 98–100
--- NOTE | 2023-03-31 07:16 | WPDHPUPDATE1 ---
History and Physical Update Update Date/Time: 03/31/23 07:16 History and Physical has been reviewed, including an updated exam of the patient. There are NO changes in the patient's condition. Risks, benefits, and alternatives have been discussed and questions answered. Patient agrees to proceed with procedure.
[2023-03-31] MEDS: ACETAMINOPHEN 500 MG TABLET 1000 MG PO (08:16)
[2023-03-31] MEDS: LACTATED RINGERS 1,000 ML 30 ML IV CONT ×2 (08:48→11:11)
--- NOTE | 2023-03-31 09:49 | WPDANESEPPF ---
Anes - Initial Pre Proc Eval Procedure: Operation Date: 03/31/23 10:15 Proposed Procedures p Tonsillectomy - Mendoza Max MD Date/Time: 03/31/23 09:49 Surgeon: Mendoza Max MD Pre Op Diagnosis: Chr Tonsillitis Patient Data Age: 22 Gender: F Height: 1.73 m Weight: 65.8 kg Last Vital Signs Temp 36.5 C 03/31/23 08:39 Pulse 63 03/31/23 08:39 Resp 16 03/31/23 08:39 BP 124/85 03/31/23 08:39 Pulse Ox 100 03/31/23 08:39 O2 Del Method Room Air 03/31/23 08:39 Allergies Allergy/AdvReac Type Severity Reaction Status Date / Time cat dander AdvReac Congested Verified 03/31/23 08:13 Home Medications Medication Instructions Recorded Confirmed Type etonogestrel 0.12 mg-ethinyl 1 vag ring vaginal MONTHLY 11/19/22 03/18/23 History estradiol 0.015 mg/24 hr vaginal ring ([facility]) buspirone 10 mg tablet 10 mg PO BID PRN Anxiety 01/29/23 03/18/23 History fluticasone propionate 50 1 - 2 spray intranasal BID #16 mL 01/29/23 03/18/23 Rx mcg/actuation nasal spray,suspension (Flonase Allergy Relief) sertraline 50 mg tablet 100 mg PO DAILY 01/29/23 03/18/23 History Patient hx anesthesia problems: none Family hx anesthesia problems: none Results Review: All pre-operative results and documents have been reviewed as part of the pre-operative evaluation. [facility] Past Medical History Medical History Contusion of leg, right, multiple sites High ankle sprain Surgical History Surgical History History of placement of ear tubes [place] teeth extracted Family History Family History Father Hypertension Family history of lymphoma Family history of hypercholesterolemia Family history of heart disease in male family member before age 55, Onset Age: 37 Grandparent Hypertension Family history of cardiovascular disease Cerebrovascular accident Diabetes mellitus Alcoholism Grandparent Alcoholism Asthma Hypertension Heart disease Cerebrovascular accident Social History Social History Social History: Single Smoking status: Current every day smoker Tobacco type: e-cigarettes/vaping Second hand tobacco smoke exposure: No Smoking end date: 01/22/23 Additional smoking assessment comments: 1 pod every 4 days Alcohol intake: current Alcohol use details: Occasionally Substance use: current Substance use type: marijuana Other substance usage details: Pt smokes on occasion, when she can't sleep. Lack of Transportation: No Lack of Food: Never True Current Housing: I Have Housing Concerned About Future Housing: No Difficulty Paying Gas/Electric Bills: No Difficulty Paying for Meds: No Currently Unemployed: No Education: Associate Degree Difficulty w/ Childcare or Family Care: No Living arrangements: with family Additional living arrangements comments: with boyfriend and mom. Occupation/Education: occupation Gender identity (if verbalized by the patient): Female Sexual Orientation (if Verbalized by the Patient): Straight or Heterosexual Spiritual care concerns: No Anes - Eval Final PreProcedure Day of Procedure 03/31/23 09:49 Patient weight: normal Heart: regular rate and rhythm Lungs: clear to auscultation Airway: Mallampati scale class 1 Neurological: alert and oriented Last oral intake: >/= 8 hours ASA classification: II Emergent: no Anesthetic plan: proceed Anesthesia type and monitoring: general ETT and standard monitoring Results Review: All pre-operative results and documents have been reviewed as part of the pre-operative evaluation. Informed Consent: The patient's anesthetic plan and its attendant risks and benefits were discussed with the patient/family/POA. Questions were solicited and answe
[2023-03-31] MEDS: fentaNYL CITRATE INJ (*CRX) 100 MCG/2 ML VIAL 25 MCG IV PUSH ×4 (11:15→11:25)
--- NOTE | 2023-03-31 11:25 | P.OP_ITS ---
Procedure Note - Detailed Date of Procedure 03/31/23 Pre-op Diagnosis Chr Tonsillitis, recurrent tonsillitis Post-op Diagnosis Same Procedure Performed tonsillectomy Surgeon Mendoza Max MD Anesthesia General Indications see above Findings large endophytic tonsils full of stones Description of Procedure patient identified consent verified preop. Patient brought operating. Time- out performed. General anesthesia induced endotracheal tube secured. Patient prepped draped positioned McIvor procedure confirmed 2nd time-out performed. McIvor mouth gag inserted tonsils described above. Removed bilaterally in extracapsular plane using Bovie electrocautery at a setting of 8. Any bleeding controlled with bipolar electrocautery setting of 8 and suction Bovie electrocautery setting of 10. Left tonsil larger than the right. In-between tonsils McIvor mouth gag lowered reopened reveal no further bleeding hurt to allow blood flow to return to the tongue. After procedure was complete McIvor mouth gag lowered for 30 seconds reopened reveal no further bleeding. Care the patient given back to Anesthesiology I performed all dictated portions of procedure no complications total blood loss 1 cc. Patient taken to PACU. Estimated Blood Loss 1 Drains No Packing No Pathology Yes Complications No immediate complications Condition Stable Disposition PACU [facility] Billing Surgery - Charge Forward: Surgery Billing
[2023-03-31] MEDS: MIDAZOLAM HCL (*CRX) 2 MG/2 ML VIAL IV PUSH (11:44)
[2023-03-31] MEDS: oxyCODONE HCL (*CRX) 5 MG TAB IR PO (12:48)
== END 2023-03-31 13:30 | disposition home or self-care (01) ==
PROVIDERS: PCP Nurse Practitioner Family; Visit Provider Otolaryngology
PROC: (CPT 42826; principal; 2023-03-31 10:15)
DX: J35.01 Chronic tonsillitis (principal); J35.8 Other chronic diseases of tonsils and adenoids; A42.89 Other forms of actinomycosis; F17.290 Nicotine dependence, other tobacco product, uncomplicated; F12.90 Cannabis use, unspecified, uncomplicated
CPT/HCPCS: 42826; 88304; A9270; J0330; J1100; J2250; J2405; J2704; J3010; J7120

== ENCOUNTER 2023-08-20 14:51 | Emergency (ER) | payer BC, SELFPAY ==
[2023-08-20 15:50] VITALS: BP 123/78; PULSE 78; RESP 16; TEMP 36.4; O2SAT 100
== END 2023-08-20 15:50 | disposition left against medical advice (07) ==
LOC: ANHED 18:04
PROVIDERS: PCP Nurse Practitioner Family
DX: M54.2 Cervicalgia (principal); R21 Rash and other nonspecific skin eruption; R51.9 Headache, unspecified
CPT/HCPCS: 99199

== ENCOUNTER 2024-11-30 12:45 | Outpatient (CLI) | payer BC, SELFPAY | END 2024-11-30 12:46 | disposition home or self-care (01) | LOC: ANHAUDIO 12:46 | PROVIDERS: PCP Nurse Practitioner Family; Visit Provider Otolaryngology | DX: H92.01 Otalgia, right ear (principal); H93.93 Unspecified disorder of ear, bilateral; H93.13 Tinnitus, bilateral; H91.20 Sudden idiopathic hearing loss, unspecified ear | CPT/HCPCS: 92557; 92567 ==

== ENCOUNTER 2025-01-06 08:57 | Outpatient (CLI) | payer BC, SELFPAY ==
--- NOTE | ~2025-01-06 | CT_ITS ---
EXAMINATION: CT abdomen w con DATE: 01/06/2025 09:27 INDICATION: Left upper quadrant abdominal pain TECHNIQUE: Computed tomography (CT) of the abdomen was performed with 100 mL Omnipaque-350 intravenous contrast. Automated exposure control and iterative reconstruction technique were employed. The dose-length product was 215.94 mGy-cm. COMPARISON: None FINDINGS: Lung bases are clear. Heart size is normal. No pericardial or pleural effusion. Liver, gallbladder, spleen, pancreas, bilateral adrenal glands and kidneys are normal. Visualized portions of bowels are unremarkable with no wall thickening or obstruction. No pathologically enlarged abdominal lymphadenopathy. Bones are unremarkable. IMPRESSION: 1. Normal CT of the abdomen with no acute process identified. Reviewed, dictated and finalized at location A. 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
--- OUTSIDE RECORDS SUMMARY | 2025-01-06 09:27 | XMS_ITS | Clinical Summary ---
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 90 Tablet 10/02/2022 Active Active Problems Problem Noted Date Diagnosed Date Depression 09/02/2022 Anxiety 09/02/2022 Encounters Date Type Department Care Team Description 10/17/2024 Abstract [facility] [address] [place] [id number] Nicholas Enriquez MD from Last 3 Months Social History Tobacco Use Types Packs/Day Years Used Date Smoking Tobacco: Never Smokeless Tobacco: Never Tobacco Cessation:Counseling Given: Not Answered Alcohol Use Standard Drinks/Week Comments Not Currently 0 (1 standard drink = 0.6 oz pur e alcohol) Feeling Safe Answer Date Recorded Are you in a relationship wi th someone who hurts you emotionally and/or physically? No 07/21/2022 Comments No Sex and Gender Information Value Date Recorded Sex Assigned at Not on file Legal Sex Female 9:27 PM CDT Gender Identity Not on file Sexual Orientation Not on file Last Filed Vital Signs Vital Sign Reading Time Taken Comments Blood Pressure 102/64 09/02/2022 9:25 AM CDT Pulse 68 09/02/2022 9:25 AM CDT Temperature 36.7 C (98 F) 07/21/2022 2:25 PM CDT Respiratory Rate 18 07/21/2022 5:36 PM CDT Oxygen Saturation 92% 09/02/2022 9:25 AM CDT Inhaled Oxygen Concentration - - Weight 67.1 kg (148 lb) 09/02/2022 9:25 AM CDT Height 172.7 cm (5' 8) 09/02/2022 9:25 AM CDT Body Mass Index 22.5 09/02/2022 9:25 AM CDT Plan of Treatment Health Maintenance Due Date Last Done Comments HPV VACCINES (1 - 3-dose series) 06/09/2014 DTAP/TDAP/TD VACCINES (1 - Tdap) 06/09/2018 HEPATITIS B VACCINES (1 of 3 - 19+ 3-dose series) 05/24 CERVICAL CANCER SCREENING 06/09/2020 HPV/Cotest (21-29) 06/09/2020 PAP SMEAR 06/09/2020 INFLUENZA VACCINE (#1) 2024 Insurance FEDERAL
--- OUTSIDE RECORDS SUMMARY | 2025-01-06 09:27 | XMS_ITS | Clinical Summary ---
Author Organization [facility] Address [address] [place] [address] Care Team Providers Care Windows Technical Specialist Name Role Phone Cindy Watts MD Primary Care Provider + Source Comments [facility],non-owned Affiliates and Associated Physician Practices is amultiple site organization consisting of ambulatory clinics and hospital sitesin [place], [place], [place] and [place]. This disclosure is being madepursuant to the Care Everywhere program and may not contain all information available regarding this patient. Last updated 17.[facility] [employer] Allergies No known active allergies Medications * Be aware that medications may not be up to date on this document. Alwaysverify current medications with the patient. Amphetamine-Dextro amphetamine (ADDERALL PO) Active Estradiol Valerate-Dienogest (NATAZIA) 3/2-2/2-3/1 MG Activ e IRON PO Active Family History Medical History Relation Name Comments Hyperlipidemia Father Hypertension Father Cancer - Lung Paternal Grandmother Relation Name Status Comments Father Paternal Grandmother Social History Tobacco Use Types Packs/Day Years Used Date Smoking Tobacco: Every Day Smokeless Tobacco: Never Comments:Vapes - e-cig Comments No Sex and Gender Information Value Date Recorded Sex Assigned at Not on file Legal Sex Female 2:16 PM CDT Gender Identity Not on file Sexual Orientation Not on file Last Filed Vital Signs Vital Sign Reading Time Taken Comments Blood Pressure 102/70 08/25/2018 3:54 PM CDT Pulse 88 08/25/2018 3:54 PM CDT Temperature 37 C (98.6 F) 08/25/2018 3:54 PM CDT Respiratory Rate 16 08/25/2018 3:54 PM CDT Oxygen Saturation 98% 08/25/2018 3:54 PM CDT Inhaled Oxygen Concentration - - Weight 63.5 kg (140 lb) 08/25/2018 3:54 PM CDT Height 172.7 cm (5' 8) 08/25/2018 3:54 PM CDT Body Mass Index 21.29 08/25/2018 3:54 PM CDT Plan of Treatment Health Maintenance Due Date Last Done Comments HIV SCREENING 06/09/2014 HPV VACCINE (1 - 3-dose series) 06/09/2014 CHLAMYDIA/GONORRHEA SCREENING 2015 HEPATITIS C SCREENING 06/05/2017 DTAP/TDAP/TD VACCINES (1 - Tdap) 06/09/2018 HEPATITIS B VACCINE (1 of 3 - 19+ 3-dose series) 06/09/2018 PNEUMOCOCCAL VACCINE (1 of 2 - PCV) 06/09/2018 PAP SMEAR 06/09/2020 DEPRESSION SCREENING 02/24/2024 COVID-19 VACCINE (1 - 2023-2 5 season) 2024 INFLUENZA VACCINE (#1) 2024 ZOSTER VACCINE (1 of 2) 06/09/2049 HIB VACCINE Aged Out No longer eligi ble based on patient's age to complete this topic MENINGOCOCCAL (Group B) VACC INE SHARED DECISION-MAKING Aged Out No longer eligibl e based on patient's age to complete this topic MENINGOCOCCAL GROUPS A/C/Y/W VACCINE Aged Out No longer eligible b ased on patient's age to complete this topic Insurance [facility] Care Teams Windows Technical Specialist Relationship Specialty Start Date End Date Cindy Watts MD [address] [place] [address] PCP - General Family Medicine 08/25/18
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
== END 2025-01-06 08:58 | disposition home or self-care (01) ==
PROVIDERS: PCP Nurse Practitioner Family; Visit Provider Nurse Practitioner Family
DX: R10.12 Left upper quadrant pain (principal)
CPT/HCPCS: 74160; Q9967